=== PATIENT | female | born 2000 | race Two or more races ===

== ENCOUNTER 2021-03-14 01:27 | Observation (INO) | payer MEDICAID, OTHER ==
[2021-03-14] MEDS ORDERED: ACETAMINOPHEN 500 MG TAB PO ONE (02:30)
[2021-03-14] MEDS ORDERED: PREN-96 PO (02:32)
== END 2021-03-14 02:50 | disposition home or self-care (01) ==
LOC: LDRP 01:27
PROVIDERS: ADMIT Obstetrics & Gynecology Obstetrics; ATTEND Obstetrics & Gynecology Obstetrics
DX: O26.899 Other specified pregnancy related conditions, unspecified trimester (principal); K08.89 Other specified disorders of teeth and supporting structures; Z3A.00 Weeks of gestation of pregnancy not specified
CPT/HCPCS: 59025; 81002; G0378; G0379